=== PATIENT | female | born 1995 ===

== ENCOUNTER 2017-06-12 17:14 | Emergency (ER) | payer OTHER ==
[2017-06-12 17:41] VITALS: BMI 24.5
[2017-06-12 17:45] VITALS: BP 126/78; PULSE 79; TEMP 98.5; O2SAT 100
--- NOTE | 2017-06-12 19:27 | C.PDOC ---
History Of Present Illness 21 year old female presents to the ER with a complaint of right foot pain and swelling for the past 10 days. Patient states she fell down the stairs 10 days ago, she was seen at another ER where she had negative x-rays. Patient reports she has been using an chayito bandage, following RICE, and used crutches for 4 days before weight bearing. However, patient states the pain and swelling has been worsening. Denies new injury, weakness, or numbness. Time Seen by Provider: 06/12/17 18:27 Chief Complaint (Nursing): Lower Extremity Problem/Injury History Per: Patient History/Exam Limitations: no limitations Onset/Duration Of Symptoms: Days Current Symptoms Are (Timing): Still Present Recent travel outside of the [place]: No - Ankle/Foot Description Of Injury: Fell Past Medical History Reviewed: Historical Data, Nursing Documentation, Vital Signs Vital Signs: Last Vital Signs Temp 98.5 F 06/12/17 17:44 Pulse 79 06/12/17 17:44 Resp 20 06/12/17 21:01 BP 126/78 06/12/17 17:44 Pulse Ox 100 06/12/17 20:39 Family History: States: Unknown Family Hx - Social History Hx Alcohol Use: No Hx Substance Use: No - Immunization History Hx Tetanus Toxoid Vaccination: No Hx Influenza Vaccination: No Hx Pneumococcal Vaccination: No Review Of Systems Musculoskeletal: Positive for: Foot Pain Neurological: Negative for: Weakness, Numbness Physical Exam - Physical Exam Appears: Non-toxic Skin: Warm, Dry Head: Atraumatic, Normacephalic Eye(s): bilateral: Normal Inspection Extremity: Other (Right foot markly swollen with tenderness to 5th metatarsal. Ecchymosis to 2nd,3rd,4th digits, nontender. Swelling to lateral malleolus. Ecchymosis to lateral aspect of calcaneus.) Pulses: Left Dorsalis Pedis: Normal, Right Dorsalis Pedis: Normal Neurological/Psych: Oriented x3, Normal Speech, Normal Motor, Normal Sensation ED Course And Treatment O2 Sat by Pulse Oximetry: 100 (Room air) Pulse Ox Interpretation: Normal Orthopedic Time Performed: 20:10 Time Out: Side verified Procedure: Splint Type: Short, Posterior Location: Right, Leg Consent obtained: Verbal Performed by: Mid-level Provider (done by cp, checked by me.) Diagnosis: Sprain Bone: Malleolus, Metatarsal (5th) Capillary refill: Normal Distal Sensation: Normal Distal Motor Function: Normal Capillary Refill: Normal Compartment: Normal Distal Sensation: Normal Distal Motor Function: Normal Medical Decision Making Medical Decision Making: Right ankle and right foot x-ray ordered. 827 pm posterior splint applied, pt has crutches at home. will d/c in wheelchair to car and she will get crutches at home. discussed elevation, no weight bearing nsaids and f/u with podiatry OR ORTHOPEDICS with patient, Disposition Counseled Patient/Family Regarding: Studies Performed, Diagnosis, Need For Followup, Rx Given - Disposition Referrals: Maria C Boothe DPM [Staff Provider] - Podiatry Clinic [Outside] Disposition: HOME/ ROUTINE Disposition Time: 20:31 Condition: IMPROVED Additional Instructions: No weight bearing, use crutches until seen by electron microscopist or orthopedist. Keep foot elevated whenever possible. Take ibuprofen for pain as prescribed.Cold compresses to foot/ankle several times a day. 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 - Scribe Statement The provider has reviewed the documentation as recorded by the Scribe Marvin Rasheed All medical record entries made by the Scribe were at my direction and personally dictated by me. I have reviewed the chart and agree that the record accurately reflects my personal performance of the history, physical exam, medical decision making, and the department course for this patient. I have also personally directed, reviewed, and agree with the discharge instructions and disposition.
[2017-06-12 21:01] VITALS: RESP 20
--- NOTE | 2017-06-13 09:03 | RAD ---
PROCEDURE: Right Foot Radiographs. HISTORY: 5th metatarsal pain , ecchmosos to toes, swelling COMPARISON: None. FINDINGS: BONES: Normal. No fracture. JOINTS: Normal. SOFT TISSUES: Soft tissue swelling more prominent at the lateral aspect of the foot OTHER FINDINGS: None. IMPRESSION: No evidence of acute fracture or dislocation.
--- NOTE | 2017-06-13 09:04 | RAD ---
PROCEDURE: Right Ankle Radiographs. HISTORY: pain and swelling later, eccymosis lat foot COMPARISON: None FINDINGS: BONES: Normal. No fracture. JOINTS: Normal. No osteoarthritis. Ankle mortise maintained. Talar dome intact SOFT TISSUES: Soft tissue swelling more prominent at the right lateral malleolus OTHER FINDINGS: None. IMPRESSION: No evidence of acute fracture or dislocation. Moderate soft tissue swelling at the right lateral malleolus
== END 2017-06-12 21:01 | disposition home or self-care (01) ==
LOC: C.ER 17:14
DX: S93.401D Sprain of unspecified ligament of right ankle, subsequent encounter (principal); S93.601D Unspecified sprain of right foot, subsequent encounter; W10.9XXD Fall (on) (from) unspecified stairs and steps, subsequent encounter